=== PATIENT | male | born 1940 | race Caucasian/White ===

== ENCOUNTER 2019-02-11 10:22 | Inpatient (IN) | payer MEDICARE, OTHER ==
[~2019-02-11] VITALS: Ht 180.3 cm; Wt 78.0 kg
[2019-02-11 11:48] LABS: BASOPHILS % (AUTO) 0.3 % (0-1); EOSINOPHILS % (AUTO) 0.3 % (0-6); HEMATOCRIT 39.9 % (42.0-52.0); HEMOGLOBIN 13.9 g/dl (14.0-17.9); LYMPHOCYTES # (AUTO) 0.7 X10'3 (1.1-4.8); LYMPHOCYTES % (AUTO) 13.6 % (21-51); MEAN CORPUSCULAR HEMOGLOBIN 33.1 PG (27.0-31.0); MEAN CORPUSCULAR HGB CONC 34.7 g/dL (33.0-36.5); MEAN CORPUSCULAR VOLUME 95.4 FL (78-98); MEAN PLATELET VOLUME 6.7 FL (7.4-10.4); MONOCYTES # (AUTO) 0.4 X10'3 (0-0.9); MONOCYTES % (AUTO) 7.9 % (2-12); NEUTROPHILS # (AUTO) 3.8 X10'3 (1.8-7.7); NEUTROPHILS % (AUTO) 77.9 % (42-75); PLATELET COUNT 196 X10'3 (140-440); RED BLOOD COUNT 4.18 X10'6 (4.70-6.10); RED CELL DISTRIBUTION WIDTH 13.6 % (11.5-14.5); WHITE BLOOD COUNT 4.9 X10'3 (4.5-11.0)
[2019-02-11 11:57] LABS: PARTIAL THROMBOPLASTIN TIME 29 SECONDS (22-32)
[2019-02-11 12:02] LABS: ALANINE AMINOTRANSFERASE 19 U/L (12-78); ALBUMIN 3.6 G/DL (3.4-5.0); ALBUMIN/GLOBULIN RATIO 1.1 (1.1-1.5); ALKALINE PHOSPHATASE 58 IU/L (46-116); ANION GAP 7 (8-16); ASPARTATE AMINO TRANSFERASE 28 U/L (10-37); BLOOD UREA NITROGEN 11 MG/DL (7-18); BUN/CREATININE RATIO 12.2 (5.4-32.0); CALCIUM 8.1 MG/DL (8.5-10.1); CHLORIDE 87 MMOL/L (99-107); GLUCOSE 135 MG/DL (70-104); POTASSIUM 3.7 MMOL/L (3.5-5.1); TOTAL CARBON DIOXIDE 26.2 MMOL/L (24-32); TOTAL PROTEIN 6.9 G/DL (6.4-8.2); TROPONIN I < 0.04 NG/ML (0.0-0.05); eGFR 81 ML/MIN
[2019-02-11 12:07] LABS: SODIUM 120 MMOL/L (135-145)
[2019-02-11] MEDS ORDERED: normal saline 1000ML IV soln IVB ONE (13:40)
[2019-02-11] MEDS ORDERED: HYDROcodone/acetaminophen 5mg/325mg tablet PO PRN (15:10)
[2019-02-11] MEDS ORDERED: bisacodyl 10mg suppository rectal RC PRN (15:10)
[2019-02-11] MEDS ORDERED: magnesium 2GM in 50ml NS 50 ML IV PRN (15:10)
[2019-02-11] MEDS ORDERED: acetaminophen 650mg rectal suppository RC PRN (15:10)
[2019-02-11] MEDS ORDERED: HYDROcodone/acetaminophen 10/325mg tab PO PRN (15:10)
[2019-02-11] MEDS ORDERED: magnesium hydroxide 30ml (MOM) UD suspension PO PRN (15:10)
[2019-02-11] MEDS ORDERED: potassium CL 10mEq/100ml bag 100 ML IV PRN ×2 (15:10)
[2019-02-11] MEDS: K and/or MAG REPLACEMENT MC SCH (15:10)
[2019-02-11] MEDS ORDERED: diphenhydrAMINE 25mg capsule PO PRN (15:10)
[2019-02-11] MEDS ORDERED: acetaminophen 325mg tablet PO PRN ×2 (15:10)
[2019-02-11] MEDS ORDERED: mag hydrox/Alum hydrox/simeth 30ml oral suspension PO PRN (15:10)
[2019-02-11] MEDS ORDERED: morphine 2 MG/ML inj. syringe IV PRN ×2 (15:10)
[2019-02-11] MEDS ORDERED: ondansetron/PF 4mg/2ml inj IV PRN (15:10)
[2019-02-11] MEDS ORDERED: potassium Cl 20 mEq SR tablet PO PRN ×2 (15:10)
[2019-02-11] MEDS ORDERED: magnesium Cl slow-release 64mg tablet PO PRN (15:10)
[2019-02-11] MEDS ORDERED: magnesium 4gm in 100ml NS 100 ML IV PRN (15:10)
[2019-02-11 15:41] LABS: CLARITY,URINE CLEAR (Clear); COLOR,URINE STRAW (Yellow); GLUCOSE, URINE NEGATIVE (Neg); KETONES,URINE NEGATIVE (Neg); LEUKOCYTE ESTERASE ,URINE NEGATIVE (Neg); NITRITES, URINE NEGATIVE (Neg); OCCULT BLOOD,URINE NEGATIVE (Neg); PROTEIN,URINE NEGATIVE (Neg); UROBILINOGEN,URINE 0.2 E.U/dL (0.2-1.0)
[2019-02-11 15:43] LABS: UA COLLECTION TYPE CLN CATCH MIDSTREAM
[2019-02-11 15:50] LABS: HEMOGLOBIN A1C 5.8 % (4.5-6.2)
[2019-02-11 15:54] LABS: OSMOLALITY UA 176 MOSM/K (50-1400)
[2019-02-11] MEDS ORDERED: MULT1TAB74 PO (15:54)
[2019-02-11] MEDS ORDERED: VIT1CAPS48 PO (15:54)
[2019-02-11] MEDS ORDERED: CHOL100046 PO (15:54)
[2019-02-11 15:55] LABS: SODIUM,URINE RANDOM 23 MEQ/L
[2019-02-11 15:57] LABS: TOTAL PROTEIN,URINE RANDOM < 6.0 MG/DL
[2019-02-11] MEDS ORDERED: TRAV5DRO EACHEYE (15:57)
[2019-02-11 15:58] LABS: URINE AMPHETAMINE SCREEN NEGATIVE (Neg); URINE BARBITUATE SCREEN NEGATIVE (Neg); URINE BENZODIAZEPINES SCREEN NEGATIVE (Neg); URINE CANNABINOID SCREEN NEGATIVE (Neg); URINE COCAINE SCREEN NEGATIVE (Neg); URINE METHADONE SCREEN NEGATIVE (Neg); URINE OPIATE SCREEN NEGATIVE (Neg); URINE PHENCYCLIDINE SCREEN NEGATIVE (Neg)
[2019-02-11] MEDS ORDERED: TIMO5DRO32 EACHEYE (15:58)
[2019-02-11] MEDS ORDERED: BRIN8DRO EACHEYE (15:58)
--- NOTE | 2019-02-11 17:15 | NUR ---
Patient in room ED 2. I have received report from Carline COHEN and had the opportunity to ask questions and assume patient care.
[2019-02-11] MEDS: normal saline 1000ml 1,000 ML IV SCH ×2 (17:50→20:03)
[2019-02-11 18:00] VITALS: BP 133/91
--- NOTE | 2019-02-11 18:15 | NUR ---
RECEIVED REPORT AND ASSUMED PATIENT CARE
--- NOTE | 2019-02-11 18:27 | NUR ---
Problems reprioritized. Patient report given, questions answered & plan of care reviewed with Destinee COHEN.
[2019-02-11] MEDS: heparin, porcine 5000 units/ml vial SQ SCH (20:03)
[2019-02-11] MEDS ORDERED: temazepam 15mg capsule PO PRN (21:00)
[2019-02-11 22:00] VITALS: BP 112/65
[2019-02-12 06:00] VITALS: BP 140/88
[2019-02-12 06:07] LABS: BASOPHILS % (AUTO) 0.4 % (0-1); EOSINOPHILS # (AUTO) 0.1 X10'3 (0-0.9); EOSINOPHILS % (AUTO) 2.3 % (0-6); HEMATOCRIT 37.6 % (42.0-52.0); HEMOGLOBIN 13.2 g/dl (14.0-17.9); LYMPHOCYTES # (AUTO) 0.8 X10'3 (1.1-4.8); LYMPHOCYTES % (AUTO) 19.8 % (21-51); MEAN CORPUSCULAR HEMOGLOBIN 33.4 PG (27.0-31.0); MEAN CORPUSCULAR VOLUME 95.3 FL (78-98); MEAN PLATELET VOLUME 6.7 FL (7.4-10.4); MONOCYTES # (AUTO) 0.5 X10'3 (0-0.9); MONOCYTES % (AUTO) 14.1 % (2-12); NEUTROPHILS # (AUTO) 2.5 X10'3 (1.8-7.7); NEUTROPHILS % (AUTO) 63.4 % (42-75); PLATELET COUNT 167 X10'3 (140-440); RED BLOOD COUNT 3.94 X10'6 (4.70-6.10); RED CELL DISTRIBUTION WIDTH 13.8 % (11.5-14.5); WHITE BLOOD COUNT 3.9 X10'3 (4.5-11.0)
[2019-02-12 06:17] LABS: ALANINE AMINOTRANSFERASE 21 U/L (12-78); ALBUMIN 3.1 G/DL (3.4-5.0); ALBUMIN/GLOBULIN RATIO 1.1 (1.1-1.5); ALKALINE PHOSPHATASE 50 IU/L (46-116); ANION GAP 9 (8-16); ASPARTATE AMINO TRANSFERASE 28 U/L (10-37); BLOOD UREA NITROGEN 10 MG/DL (7-18); BUN/CREATININE RATIO 11.5 (5.4-32.0); CALCIUM 7.7 MG/DL (8.5-10.1); CHLORIDE 102 MMOL/L (99-107); CHOL/HDL RATIO 2.9 (0.00-4.99); CHOLESTEROL 182 MG/DL (0-200); CREATININE 0.87 MG/DL (0.60-1.10); GLUCOSE 81 MG/DL (70-104); HDL CHOLESTEROL 62 MG/DL (35-60); LDL CHOLESTEROL 118 MG/DL (50-100); PHOSPHORUS 3.8 MG/DL (2.3-4.5); POTASSIUM 3.5 MMOL/L (3.5-5.1); SODIUM 136 MMOL/L (135-145); TOTAL CARBON DIOXIDE 25.5 MMOL/L (24-32); TOTAL PROTEIN 5.8 G/DL (6.4-8.2); TRIGLYCERIDES 63 MG/DL (20-135); eGFR 85 ML/MIN
--- NOTE | 2019-02-12 06:21 | NUR ---
REPORT GIVEN TO JOSE JUAN COHEN
[2019-02-12] MEDS: heparin, porcine 5000 units/ml vial SQ SCH (07:58)
[2019-02-12] MEDS ORDERED: BRIMONID TART EACHEYE SCH (08:00)
[2019-02-12] MEDS ORDERED: vitamin D (cholecalciferol) 1,000 unit tablet PO SCH (08:00)
[2019-02-12] MEDS ORDERED: D3 PO SCH (08:00)
[2019-02-12] MEDS: K and/or MAG REPLACEMENT MC SCH (08:00)
[2019-02-12] MEDS ORDERED: BRINZOLAMIDE EACHEYE SCH (08:00)
[2019-02-12] MEDS ORDERED: COD LIVER OIL PO SCH (08:00)
[2019-02-12] MEDS ORDERED: multivitamins, therapeutics tablet PO SCH (08:00)
[2019-02-12] MEDS ORDERED: VIT A PO SCH (08:00)
[2019-02-12] MEDS: normal saline 1000ml 1,000 ML IV SCH (08:05)
[2019-02-12 10:15] VITALS: BP_SYST 123; BP_SYST 125; BP_SYST 131; BP_DIAS 77; BP_DIAS 81
--- NOTE | 2019-02-12 14:18 | NUR ---
PAGER ID: [phone] MESSAGE: [id number] Jerome Wallis Patient had a 2 second burst of PSVT HR in the 190s Rosemary [id number]
[2019-02-12 14:30] VITALS: BP 113/87
[2019-02-12] MEDS ORDERED: timolol 0.5% ophthalmic solution 5ml bottle EACHEYE SCH (20:00)
[2019-02-12] MEDS ORDERED: latanoprost 0.005% 2.5ml ophthalmic drops EACHEYE SCH (21:00)
== END 2019-02-12 16:24 | disposition home or self-care (01) | DRG 640 ==
LOC: ER 10:23 → ED HOLD 15:20 → ORTHO 4S 18:38
PROVIDERS: ADMIT Family Medicine; ATTEND Family Medicine
PROC: 4A10X4Z Monitoring of Central Nervous Electrical Activity, External Approach (ICD-10-PCS; principal; 2019-02-12)
DX: E87.1 Hypo-osmolality and hyponatremia (principal); G93.41 Metabolic encephalopathy; E86.0 Dehydration; D64.9 Anemia, unspecified; E86.1 Hypovolemia; H40.9 Unspecified glaucoma; E87.6 Hypokalemia
CPT/HCPCS: 36415; 70450; 70544; 70551; 71046; 80053; 80061; 80305; 81003; 82570; 82948; 83036; 83735; 83930; 83935; 84100; 84156; 84300; 84443; 84484; 85025; 85610; 85730; 87081; 87207; 92508; 92616; 93005; 93306; 93880; 95816; 96360; 97116; 97161; 99285; G0378; J1644; J7030